=== PATIENT | female | born 1990 | race Caucasian/White ===

== ENCOUNTER 2022-05-27 20:56 | Emergency (ER) | payer OTHER ==
[~2022-05-27] VITALS: Ht 167.6 cm; Wt 70.3 kg
[2022-05-27 21:23] VITALS: BP 119/78
[2022-05-27] MEDS ORDERED: NITR100C6 PO (21:30)
[2022-05-27] MEDS ORDERED: PHEN-705 PO (21:30)
--- NOTE | 2022-05-27 21:33 | NUR ---
URINE COLLECTED AND SENT TO LAB
--- NOTE | 2022-05-27 21:45 | NUR ---
Patient discharged to home in stable condition. Written and verbal after care instructions given. Patient verbalizes understanding of instruction. Pt ambulatory with a steady gait
[2022-05-27 22:12] LABS: BILIRUBIN,URINE NEGATIVE (NEGATIVE); COLOR,URINE YELLOW (YELLOW); LEUKOCYTE ESTERASE ,URINE NEGATIVE (NEGATIVE); NITRITE, URINE NEGATIVE (NEGATIVE); PH,URINE 7.5 (5.0-8.0); PROTEIN,URINE NEGATIVE (NEGATIVE); UGLUCOSE NEGATIVE (NEGATIVE); UROBILINOGEN,URINE 0.2 EU/dL (0.2)
== END 2022-05-27 21:46 | disposition home or self-care (01) ==
LOC: ER 20:59
DX: N39.0 Urinary tract infection, site not specified (principal); E05.90 Thyrotoxicosis, unspecified without thyrotoxic crisis or storm; Z79.899 Other long term (current) drug therapy
CPT/HCPCS: 84703-TC; 87086-TC